=== PATIENT | female | born 1990 | race African-American/Black ===

== ENCOUNTER 2016-10-07 11:50 | Emergency (ER) | payer OTHER ==
[2016-10-07] MEDS ORDERED: Sulfameth/Trimethoprim DS 800-160mg TAB ONE (12:14)
[2016-10-07] MEDS ORDERED: Cephalexin 500 MG CAP ONE (12:14)
[2016-10-07] MEDS ORDERED: Fluconazole 100 MG TAB ONE (12:15)
[2016-10-07] MEDS ORDERED: AMOXicillin 250 MG CAP ONE (12:39)
== END 2016-10-07 12:30 | disposition home or self-care (01) ==
LOC: MADERS 11:50
DX: B35.3 Tinea pedis (principal)
CPT/HCPCS: 99282

== ENCOUNTER 2017-04-21 17:18 | Emergency (ER) | payer BC ==
[2017-04-21 17:38] LABS: Pregnancy Test - Urine (BHCG) Negative (Negative); Pregu Control Background? CLEAR/WHITE (CLR/WHITE); Pregu Control Bar Appear? YES (CONTROL BAR)
[2017-04-21 17:42] LABS: Bilirubin Negative (Negative); Blood, Urine Trace (Negative); Clarity Slightly Cloudy (Clear); Glucose, Urine (Dipstick) Negative (Negative); Leukocyte Trace (Negative); Nitrite Negative (Negative); Protein, Urine (Dipstick) Negative (Neg-Trace); Urobilinogen 0.2 mg/dL (0.2-1.0)
[2017-04-21 17:43] LABS: Bacteria/HPF 1+ HPF (None Seen); RBC/HPF 0-3 HPF (0-3); WBC/HPF 0-3 HPF (0-3)
== END 2017-04-21 17:55 | disposition home or self-care (01) ==
LOC: MADERS 17:18
DX: M54.5 Low back pain (principal)
CPT/HCPCS: 81003; 81015; 81025; 99283